=== PATIENT | female | born 1980 | race Caucasian/White ===

== ENCOUNTER 2018-11-11 22:09 | Emergency (ER) | payer MEDICAID ==
[~2018-11-11] VITALS: Ht 154.9 cm; Wt 68.9 kg
[2018-11-11 22:15] VITALS: BP_SYST 134
[2018-11-12 00:28] LABS: BASOPHILS % (AUTO) 0.3 % (0.0-2.0); EOSINOPHILS # (AUTO) 0.3 K/uL (0.0-0.4); EOSINOPHILS % (AUTO) 2.6 % (0.0-4.0); HEMATOCRIT 39.4 % (36-48); HEMOGLOBIN 13.2 g/dL (12.0-16.0); LYMPHOCYTES # (AUTO) 3.4 K/uL (1.0-5.5); LYMPHOCYTES % (AUTO) 33.9 % (20.5-51.5); MEAN CORPUSCULAR HEMOGLOBIN 31 pg (27-31); MEAN CORPUSCULAR HGB CONC 34 % (32-36); MEAN CORPUSCULAR VOLUME 92 fL (79.0-98.0); MONOCYTES # (AUTO) 0.7 K/uL (0.0-1.0); NEUTROPHILS # (AUTO) 5.7 K/uL (1.8-7.7); NEUTROPHILS % (AUTO) 56.2 % (40.0-70.0); PLATELET COUNT (AUTO) 236 K/uL (130-430); RED CELL DISTRIBUTION WIDTH 13.2 % (9.0-15.0); WHITE BLOOD COUNT (AUTO) 10.1 K/uL (4.8-10.8)
[2018-11-12 00:41] LABS: CALCIUM 8.7 mg/dL (8.4-11.0); CREATININE 0.7 mg/dL (0.55-1.30); POTASSIUM 3.7 mmol/L (3.5-5.1)
[2018-11-12] MEDS ORDERED: NACL 0.9% 1,000 ML IV ONE (00:50)
[2018-11-12] MEDS ORDERED: MORPHINE 4 MG/ML INJ. SYRINGE IVP ONE (01:00)
[2018-11-12] MEDS ORDERED: DIPHENHYDRAMINE INJ 50 MG/ML VIAL IVP ONE (01:00)
[2018-11-12 01:07] LABS: ALBUMIN 3.5 g/dL (3.4-4.8); TOTAL BILIRUBIN 0.4 mg/dL (0.0-1.0)
[2018-11-12 03:50] VITALS: BP_SYST 124
== END 2018-11-12 03:50 | disposition home or self-care (01) ==
LOC: SED 22:09 → EDBD 22:09 → SED 11-12 03:50
DX: O20.0 Threatened abortion (principal); Z3A.01 Less than 8 weeks gestation of pregnancy
CPT/HCPCS: 36415; 76805; 80053; 84702; 84703; 85025; 86900; 86901; 96374; 96375; 99284; J1200; J2270; J7030